=== PATIENT | female | born 1990 | race African-American/Black ===

== ENCOUNTER 2020-08-24 22:12 | Emergency (ER) | payer OTHER, SELFPAY ==
[2020-08-24] MEDS ORDERED: Ketorolac Tromethamine 30 MG/ML VIAL ONE (22:24)
== END 2020-08-24 22:43 | disposition home or self-care (01) ==
LOC: NAV ERS 22:12
DX: S40.012A Contusion of left shoulder, initial encounter (principal); V40.5XXA Car driver injured in collision with pedestrian or animal in traffic accident, initial encounter
CPT/HCPCS: 96374; J1885